=== PATIENT | male | born 1995 ===

== ENCOUNTER 2016-11-03 23:29 | Emergency (ER) | payer OTHER ==
[2016-11-03 23:30] VITALS: BMI 30.8
[2016-11-03 23:38] VITALS: BP 148/66; PULSE 87; RESP 16; TEMP 99.4; O2SAT 100
--- NOTE | 2016-11-03 23:40 | ED PDOC ---
HPI: Wound Care - HPI Time Seen by Provider: 11/03/16 23:40 Chief Complaint (Nursing): Abnormal Skin Integrity Chief Complaint (Provider): finger laceration History Per: Patient Additional Complaint(s): 21-year-old right-hand dominant male presents to emergency Department with superficial laceration to left index finger sustained with a gambling box person by accident at 3 PM today. Patient states he was working on a car when this injury occurred. He applied a pressure dressing which she kept on for the past few hours. Patient presents this evening for further evaluation. He has mild localized pain, denies numbness or tingling to the affected area. Patient is not sure of his last tetanus booster. Past Medical History Reviewed: Historical Data, Nursing Documentation, Vital Signs Vital Signs: Last Vital Signs Temp 99.4 F 11/03/16 23:34 Pulse 87 11/03/16 23:34 Resp 16 11/03/16 23:34 BP 148/66 11/03/16 23:34 Pulse Ox 100 11/03/16 23:34 - Medical History PMH: Asthma - Surgical History Surgical History: No Surg Hx - Family History Family History: States: Diabetes - Living Arrangements Living Arrangements: With Family - Social History Current smoker - smoking cessation education provided: No Alcohol: None Drugs: Denies - Immunization History Hx Tetanus Toxoid Vaccination: No (not sure of last booster) Hx Influenza Vaccination: No Hx Pneumococcal Vaccination: No - Home Medications Home Medications: Ambulatory Orders Medication Instructions Recorded Ibuprofen [Motrin] 600 mg PO Q6H PRN #15 tab 07/14/14 oxyCODONE/Acetaminophen [Percocet 1 tab PO Q6H PRN #24 tab 01/24/15 5/325 mg Tab] Amoxicillin/Clavulanate Pota 875 mg PO BID 02/03/15 [Augmentin 875 mg-125 mg] Cyclobenzaprine HCl [Flexeril] 10 mg PO TID 02/03/15 Cyclobenzaprine [Flexeril] 5 mg PO Q8 PRN #15 tab 12/08/15 Ibuprofen [Motrin Tab] 600 mg PO Q8 PRN #60 tab 12/08/15 Lidocaine 5% [Lidoderm] 1 ea TD DAILY #30 patch 12/12/15 Nabumetone [Relafen] 500 mg PO BID #20 tab 12/12/15 - Allergies Allergies/Adverse Reactions: Allergies Allergy/AdvReac Type Severity Reaction Status Date / Time No Known Allergies Allergy Verified 12/12/15 20:24 Review of Systems ROS Statement: Except As Marked, All Systems Reviewed And Found Negative Musculoskeletal: Positive for: Other (left index finger laceration) Physical Exam - Reviewed Nursing Documentation Reviewed: Yes Vital Signs Reviewed: Yes - Physical Exam Appears: Positive for: Well, Non-toxic, No Acute Distress Skin: Negative for: Rash Eye Exam: Positive for: Normal appearance Extremity: Positive for: Other (4 cm very superficial laceration noted to distal aspect of left index finger, full rom of affected digit, no active bleeding, no FB, fingernail intact) Neurologic/Psych: Positive for: Alert, Oriented - ECG O2 Sat by Pulse Oximetry: 100 Pulse Ox Interpretation: Normal Medical Decision Making Medical Decision Makin21 year old with superficial finger laceration Plan: Tetanus booster Procedure note: Wound was then sent normal saline and Betadine, Steri-Strips were applied to the wound edges, good wound approximation was achieved, a bandage applied overlying Steri-Strips, neurovascular intact status post placement. Patient given wound care instructions. Disposition - Clinical Impression Clinical Impression: Requires a booster tetanus, Finger laceration - Patient ED Disposition Is Patient to be Admitted: No Counseled Patient/Family Regarding: Diagnosis, Need For Followup - Disposition Referrals: [facility] [Outside] Disposition: Routine/Home Disposition Time: 23:54 Condition: STABLE Additional Instructions: Keep wound clean and dry. Tylenol as needed for pain. Allow steri-strips to fall off on their own. Follow up with primary care doctor or clinic in 2-3 days. Instructions: Finger Laceration (ED), Steristrips (ED), Diphtheria/Acellular Pertussis/Tetanus Booster Vaccine (Tdap) (Injection) Forms: [employer] (Setswana)
[2016-11-03] MEDS ORDERED: Hydrogen Peroxide 3% Soln (480ml) TP ONE (23:57)
[2016-11-04] MEDS ORDERED: Bacitracin 500 Units/gm Oint Foilpak UD ONE (00:12)
== END 2016-11-04 00:24 | disposition short-term general hospital (02) ==
LOC: H.ER 23:29
DX: S61.211A Laceration without foreign body of left index finger without damage to nail, initial encounter (principal); W26.8XXA Contact with other sharp object(s), not elsewhere classified, initial encounter; Y92.89 Other specified places as the place of occurrence of the external cause